=== PATIENT | female | born 1965 | race Native Hawaiian/Other Pacific Islander ===

== ENCOUNTER 2018-06-03 17:32 | Emergency (ER) | payer OTHER, SELFPAY ==
--- NOTE | 2018-06-03 17:35 | ED.LOWEXIN ---
HPI - Extremity Injury (Lower) <BRANDON Lemus - Last Filed: 06/03/18 22:16> General Chief Complaint: Extremity Injury, Lower Stated Complaint: fell, painful on lft knee and lizarraga Time Seen by Provider: 06/03/18 17:35 History of Present Illness HPI Narrative: A 52-year-old female here for complaint of left knee pain over the past week. She states that she slipped while getting out of a vehicle landing on her anterior knee. She reports that she has had pain into the anterior knee and also now to the posterior knee for the last several days. She denies any other injuries. She does report that she has also had swelling to bilateral lower extremities for the past 2 weeks. She states that she had some shortness of breath last night. She denies any chest pain. No fevers no chills. No cough. She is able ambulate. She reports increased pain with palpation to the left knee area. She does report that she has had several for plane flights over the past couple of weeks that she is visiting from [facility] and also went to [place] and to [place]. Related Data Previous Rx's Medication Instructions Recorded hydrocodone-acetaminophen [[place]] 1 tab PO Q6H PRN #10 tab 06/03/18 Allergies Allergy/AdvReac Type Severity Reaction Status Date / Time No Known Drug Allergies Allergy Verified 06/03/18 18:51 Review of Systems <BRANDON Lemus - Last Filed: 06/03/18 22:16> Constitutional Denies chills, Denies fever(s), Denies lethargy and Denies weakness Eyes Denies change in vision, Denies eye discharge, Denies irritation and Denies loss of vision ENT Ears, Nose, Mouth, and Throat: Denies change in voice, Denies neck pain and Denies sore throat Cardiovascular Denies chest pain, Denies irregular heart rhythm, Denies lightheadedness, Denies palpitations, Reports dyspnea and Denies orthopnea Respiratory Reports dyspnea Gastrointestinal Gastrointestinal: Denies abdominal pain, Denies change in bowel habits, Denies diarrhea, Denies nausea and Denies vomiting Genitourinary Denies hematuria, Denies flank pain, Denies urinary incontinence and Denies urinary urgency Musculoskeletal Denies neck pain Comments: Pain into left anterior and posterior knee. Bilateral lower edema to lower extremities Integumentary/Breasts Denies pruritus, Denies erythema, Denies rash and Denies wounds Neurologic Denies confusion, Denies loss of vision and Denies weakness Psychiatric Denies anxiety, Denies confusion, Denies depression, Denies homicidal ideation and Denies suicidal ideation Endocrine Denies palpitations Hematologic/Lymphatic Denies easy bruising Exam <BRANDON Lemus - Last Filed: 06/03/18 22:16> Initial Vital Signs Initial Vital Signs: Vital Signs Temperature 98.0 F 06/03/18 18:12 Pulse Rate 95 H 06/03/18 18:12 Respiratory Rate 16 06/03/18 18:12 Blood Pressure 133/62 H 06/03/18 18:12 Pulse Oximetry 99 06/03/18 18:12 Const General: cooperative and well developed Nutritional Appearance: well nourished Orientation: alert, awake, oriented x3 and not confused HENMT Mouth: oral mucosae normal and moist mucous membranes Eyes Conjunctivae: conjunctivae normal Sclera: sclerae normal Pupils: PERRL EOM: EOM intact bilaterally Resp Effort & Inspection: normal respiratory effort, able to speak in complete sentences, no respiratory distress and no use of accessory muscles Auscultation: clear to auscultation bilaterally, no rales, no rhonchi and no wheezes Cardio Rate: regular rate Rhythm: regular rhythm Heart Sounds: no click, no gallops, no murmurs and no rubs Pulses: normal peripheral pulses Skin General: no rashes or lesions noted, No jaundice and No petechiae Extrem Right lower extremity: edema Details: non-pitting and 2+ Left lower extremity: edema Details: non-pitting and 2+ Other: Left lower extremity with no erythema no increased temperature with palpation. Homans sign negative. No deformities to the left knee. Full range of motion distally. Full range of motion of left knee distal pulses intact distal sensation is intact. Negative anterior-posterior drawer sign <Gonzalo Wells DO - Last Filed: 06/03/18 22:30> Initial Vital Signs Initial Vital Signs: Vital Signs Temperature 98.0 F 06/03/18 18:12 Pulse Rate 95 H 06/03/18 18:12 Respiratory Rate 16 06/03/18 18:12 Blood Pressure 133/62 H 06/03/18 18:12 Pulse Oximetry 99 06/03/18 18:12 Course <BRANDON Lemus - Last Filed: 06/03/18 22:16> Orders Ordered: ED Orders 06/03/18 18:21 XR knee LT 3V Stat 06/03/18 18:22 XR chest 1V Stat EKG-12 Lead Stat 06/03/18 18:23 US periph venous low extrem lt Stat 06/03/18 18:56 B Type Natriuretic Peptide Stat Complete Blood Count AUTO DIFF Stat Comprehensive Metabolic Panel Stat Troponin & CK Cardiac Panel Stat Vital Signs - 8 hr 06/03/18 18:12 06/03/18 20:25 Temperature 98.0 F Pulse Rate 95 H 77 Respiratory Rate 16 15 Blood Pressure 133/62 H Blood Pressure [Right Arm] 119/74 Pulse Oximetry 99 100 <Gonzalo Wells DO - Last Filed: 06/03/18 22:30> Orders Ordered: ED Orders 06/03/18 18:21 XR knee LT 3V Stat 06/03/18 18:22 XR chest 1V Stat EKG-12 Lead Stat 06/03/18 18:23 US periph venous low extrem lt Stat 06/03/18 18:56 B Type Natriuretic Peptide Stat Complete Blood Count AUTO DIFF Stat Comprehensive Metabolic Panel Stat Troponin & CK Cardiac Panel Stat Vital Signs - 8 hr 06/03/18 18:12 06/03/18 20:25 Temperature 98.0 F Pulse Rate 95 H 77 Respiratory Rate 16 15 Blood Pressure 133/62 H Blood Pressure [Right Arm] 119/74 Pulse Oximetry 99 100 MDM - Extremity Injury (Lower) <BRANDON Lemus - Last Filed: 06/03/18 22:16> Lab Data Result diagrams: 06/03/18 18:56 06/03/18 18:56 Lab Results 06/03/18 06/03/18 06/03/18 Range/Units 18:56 18:56 18:56 WBC 6.2 (4.5-11.0) X10^3/uL RBC 4.37 (4.0-5.2) X10^6/uL Hgb 13.4 (12.0-16.0) g/dL Hct 39.9 (36-46) % MCV 91.2 (80-100) fL MCH 30.7 (26-34) PG MCHC 33.7 (30-36) % RDW 13.6 (11.6-14.8) % Plt Count 282 (150-400) X10^3/uL Neut % (Auto) 64.4 (50-75) % Lymph % (Auto) 23.9 L (25-40) % [place] % (Auto) 8.1 (3-14) % Eos % (Auto) 2.5 (2-4) % Baso % (Auto) 1.1 (0-2) % Neut # (Auto) 4000 (3726-0450) /uL Sodium 142 (137-145) mmol/L Potassium 4.7 (3.4-5.1) mmol/L Chloride 102 (98-107) mmol/L Carbon Dioxide 28 (22-32) mmol/L BUN 21 H (7-17) mg/dL Creatinine 0.70 (0.52-1.04) mg/dL Estimated GFR > 60.0 (>60) mL/min BUN/Creatinine Ratio 30.0 H (6-22) Glucose 143 H (70-100) mg/dL Calcium 9.7 (8.4-10.2) mg/dL Total Bilirubin 0.6 (0.2-1.3) mg/dL AST 31 (14-36) IU/L ALT 20 (9-52) IU/L Alkaline Phosphatase 40 (38-126) U/L Total Creatine Kinase 58 (30-135) U/L Troponin I < 0.012 (0.01-0.034) ng/mL B-Natriuretic Peptide (<100) Total Protein 7.9 (6.3-8.2) g/dL Albumin 4.5 (3.5-5.0) g/dL Globulin 3.4 (1.7-4.1) g/dL Albumin/Globulin Ratio 1.3 (1.0-2.8) Imaging Data Knee : Radiologist's impression: Patient: Ailyn Lewis MR#: [id number] : 1965 Acct:[id number] Age/Sex: 52 / F Date of Service: 06/03/18 Loc: ED Accession Number: [id number] Procedure: XR knee LT 3V Ordering Provider: Kameron Hall PROCEDURE: XR KNEE LT 3V INDICATIONS: Ground level fall with pain to anterior knee TECHNIQUE: 3 views of the knee were acquired. COMPARISON: None. FINDINGS: Bones: No displaced or depressed fractures or dislocations. The lateral tibial plateau is slightly indistinct in appearance. Soft tissues: There is a small joint effusion. No suspicious soft tissue calcifications. IMPRESSION: 1. No displaced or depressed fracture. 2. Slightly indistinct appearance of the lateral tibial plateau. If there is clinical suspicion for a nondepressed lateral tibial plateau fracture, further evaluation may be obtained with CT. 3. Small joint effusion. Chest x-ray: Radiologist's impression: Patient: Ailyn Lewis MR#: [id number] : 1965 Acct:[id number] Age/Sex: 52 / F Date of Service: 06/03/18 Loc: ED Accession Number: [id number] Procedure: XR chest 1V Ordering Provider: Kameron Hall PROCEDURE: XR CHEST 1V INDICATIONS: Shortness of breath last night swelling to bilateral lower e TECHNIQUE: One view of the chest was acquired. COMPARISON: None. FINDINGS: Surgical changes and devices: None. Lungs and pleura: No pleural effusions or pneumothorax. Lungs are clear. Mediastinum: Mediastinal contours appear normal. Heart size is normal. Bones and chest wall: No suspicious bony lesions. Overlying soft tissues appear unremarkable. IMPRESSION: 1. No acute cardiopulmonary disease. Dictated by: Heber Anderson M.D. on 06/03/2018 at 18:41 Approved by: Heber Anderson M.D. on 06/03/2018 at 18:42 ECG Data Interpretation: EKG shows normal sinus rhythm with no ST elevation or depression. No ectopy. Ventricular rate of 87. Pr interval of 174. QRS duration 96. QT of 367. MDM Narrative Medical decision making narrative: EKG shows normal sinus rhythm with no ST elevation or depression no ectopy. CBC and Chem panel were obtained were unremarkable. Cardiac enzymes were negative. BNP was unremarkable. Chest x-ray was obtained was negative for any acute findings. Ultrasound of the left lower extremity was obtained and was negative for DVT. X-ray of the left knee was obtained was negative for any acute findings. Signs and symptoms presents as contusion/sprain of the left knee. she is placed in knee immobilizer and crutches for non weight-bearing and support. Follow up with primary care provider next week for re-evaluation. If continue symptoms recommend MRI of the left knee. Elevate lower extremities to help with swelling. [id number] Tylenol Motrin as needed for any discomfort. Small amount of [place] is prescribed for breakthrough pain. For any worsening symptoms return to emergency room. <Gonzalo Wells DO - Last Filed: 06/03/18 22:30> Lab Data Lab Results 06/03/18 06/03/18 06/03/18 Range/Units 18:56 18:56 18:56 WBC 6.2 (4.5-11.0) X10^3/uL RBC 4.37 (4.0-5.2) X10^6/uL Hgb 13.4 (12.0-16.0) g/dL Hct 39.9 (36-46) % MCV 91.2 (80-100) fL MCH 30.7 (26-34) PG MCHC 33.7 (30-36) % RDW 13.6 (11.6-14.8) % Plt Count 282 (150-400) X10^3/uL Neut % (Auto) 64.4 (50-75) % Lymph % (Auto) 23.9 L (25-40) % [place] % (Auto) 8.1 (3-14) % Eos % (Auto) 2.5 (2-4) % Baso % (Auto) 1.1 (0-2) % Neut # (Auto) 4000 (5034-7433) /uL Sodium 142 (137-145) mmol/L Potassium 4.7 (3.4-5.1) mmol/L Chloride 102 (98-107) mmol/L Carbon Dioxide 28 (22-32) mmol/L BUN 21 H (7-17) mg/dL Creatinine 0.70 (0.52-1.04) mg/dL Estimated GFR > 60.0 (>60) mL/min BUN/Creatinine Ratio 30.0 H (6-22) Glucose 143 H (70-100) mg/dL Calcium 9.7 (8.4-10.2) mg/dL Total Bilirubin 0.6 (0.2-1.3) mg/dL AST 31 (14-36) IU/L ALT 20 (9-52) IU/L Alkaline Phosphatase 40 (38-126) U/L Total Creatine Kinase 58 (30-135) U/L Troponin I < 0.012 (0.01-0.034) ng/mL B-Natriuretic Peptide (<100) Total Protein 7.9 (6.3-8.2) g/dL Albumin 4.5 (3.5-5.0) g/dL Globulin 3.4 (1.7-4.1) g/dL Albumin/Globulin Ratio 1.3 (1.0-2.8) Discharge Plan Departure Patient Disposition: Home, Self-Care Clinical Impression: Left knee sprain Discharge Date/Time: 06/03/18 20:50 Interventions: ED Discharge Assessment Last Done: 06/03/18 20:49 Instructions: DI for Knee Pain Activity Restrictions/Additional Instructions: Laboratory results and imaging were unremarkable today. Signs and symptoms presents as contusion/sprain of the left knee. she is placed in knee immobilizer and crutches for non weight-bearing and support. Follow up with primary care provider next week for re-evaluation. If continue symptoms recommend MRI of the left knee. Elevate lower extremities to help with swelling. [id number] Tylenol Motrin as needed for any discomfort. Small amount of [place] is prescribed for breakthrough pain. For any worsening symptoms return to emergency room. Prescriptions: New hydrocodone-acetaminophen [[place]] 5-325 mg tablet 1 tab PO Q6H PRN (Reason: pain) Qty: 10 RF: 0 Referrals: [facility] [Provider Group] <Gonzalo Wells DO - Last Filed: 06/03/18 22:30> Cosmandeep ED Attending Hillary Attestation: I was immediately available in the department for consultation. Documentation has been reviewed. I agree with assessment and plan.
[2018-06-03 18:12] VITALS: BP 133/62; PULSE 95; RESP 16; TEMP 36.7; O2SAT 99; BMI 30.9
--- NOTE | 2018-06-03 18:21 | DI.RAD.S_ITS ---
PROCEDURE: XR KNEE LT 3V INDICATIONS: Ground level fall with pain to anterior knee TECHNIQUE: 3 views of the knee were acquired. COMPARISON: None. FINDINGS: Bones: No displaced or depressed fractures or dislocations. The lateral tibial plateau is slightly indistinct in appearance. Soft tissues: There is a small joint effusion. No suspicious soft tissue calcifications. IMPRESSION: 1. No displaced or depressed fracture. 2. Slightly indistinct appearance of the lateral tibial plateau. If there is clinical suspicion for a nondepressed lateral tibial plateau fracture, further evaluation may be obtained with CT. 3. Small joint effusion. Dictated by: Heber Anderson M.D. on 06/03/2018 at 18:42 Approved by: Heber Anderson M.D. on 06/03/2018 at 18:44
--- NOTE | 2018-06-03 18:22 | DI.RAD.S_ITS ---
PROCEDURE: XR CHEST 1V INDICATIONS: Shortness of breath last night swelling to bilateral lower e TECHNIQUE: One view of the chest was acquired. COMPARISON: None. FINDINGS: Surgical changes and devices: None. Lungs and pleura: No pleural effusions or pneumothorax. Lungs are clear. Mediastinum: Mediastinal contours appear normal. Heart size is normal. Bones and chest wall: No suspicious bony lesions. Overlying soft tissues appear unremarkable. IMPRESSION: 1. No acute cardiopulmonary disease. Dictated by: Heber Anderson M.D. on 06/03/2018 at 18:41 Approved by: Heber Anderson M.D. on 06/03/2018 at 18:42
--- NOTE | 2018-06-03 18:23 | DI.US.S_ITS ---
PROCEDURE: US PERIPH VENOUS LOW EXTREM LT INDICATIONS: Pain into posterior knee and also swelling of lower leg. TECHNIQUE: Real-time imaging, as well as color and pulse Doppler interrogation, were performed of the lower extremity deep veins from the inguinal ligament to the popliteal fossa. COMPARISON: None. FINDINGS: The deep veins are normally compressible, and free of intraluminal thrombus. Color and pulse Doppler demonstrate normal phasic intraluminal flow. There is normal augmentation response to distal compression maneuver. IMPRESSION: 1. No evidence of deep venous thrombosis in the left lower extremity. Dictated by: Heber Anderson M.D. on 06/03/2018 at 20:36 Approved by: Heber Anderson M.D. on 06/03/2018 at 20:36
[2018-06-03 19:08] LABS: Add Manual Diff / Slide Review NO; Basophils Percent Auto 1.1 % (0-2); Eosinophils Percent Auto 2.5 % (2-4); Hematocrit 39.9 % (36-46); Hemoglobin 13.4 g/dL (12.0-16.0); Lymphocytes Percent Auto 23.9 % (25-40); Mean Corpuscular HGB Conc 33.7 % (30-36); Mean Corpuscular Hemoglobin 30.7 PG (26-34); Mean Corpuscular Volume 91.2 fL (80-100); Monocytes Percent Auto 8.1 % (3-14); Neutrophils Absolute Auto 4000 /uL (3000-5900); Neutrophils Percent Auto 64.4 % (50-75); Platelet Count 282 X10^3/uL (150-400); Red Blood Cell Count 4.37 X10^6/uL (4.0-5.2); Red Cell Distribution Width 13.6 % (11.6-14.8); White Blood Cell Count 6.2 X10^3/uL (4.5-11.0)
[2018-06-03 19:17] LABS: Alanine Aminotransferase 20 IU/L (9-52); Albumin 4.5 g/dL (3.5-5.0); Albumin Globulin Ratio 1.3 (1.0-2.8); Alkaline Phosphatase 40 U/L (38-126); Aspartate Aminotransferase 31 IU/L (14-36); Bilirubin Total 0.6 mg/dL (0.2-1.3); Blood Urea Nitrogen 21 mg/dL (7-17); Calcium 9.7 mg/dL (8.4-10.2); Carbon Dioxide 28 mmol/L (22-32); Chloride 102 mmol/L (98-107); Creatine Kinase 58 U/L (30-135); Estimated Glomerular Filt Rate > 60.0 mL/min (>60); Globulin 3.4 g/dL (1.7-4.1); Glucose 143 mg/dL (70-100); Potassium 4.7 mmol/L (3.4-5.1); Sodium 142 mmol/L (137-145); Total Protein 7.9 g/dL (6.3-8.2)
[2018-06-03 19:26] LABS: HEMOLYSIS 83 (0-50)
[2018-06-03 19:34] LABS: Troponin I < 0.012 ng/mL (0.01-0.034)
[2018-06-03 20:25] VITALS: BP 119/74; PULSE 77; RESP 15; O2SAT 100
== END 2018-06-03 20:50 | disposition home or self-care (01) ==
PROVIDERS: Emergency Provider Nurse Practitioner Family
DX: S83.92XA Sprain of unspecified site of left knee, initial encounter (principal); R06.02 Shortness of breath; W01.0XXA Fall on same level from slipping, tripping and stumbling without subsequent striking against object, initial encounter
CPT/HCPCS: 36591; 71045; 73562; 80053; 82550; 82553; 83880; 84484; 85025; 93005; 93971; 99283; 99285

== ENCOUNTER 2025-05-17 12:22 | Emergency (ER) | payer OTHER, SELFPAY ==
[2025-05-17] VITALS (11 sets, daily range): BP systolic 110–132; BP diastolic 53–61; PULSE 75–84; RESP 14–22; TEMP 36.9; O2SAT 97–100; BMI 24.0
--- NOTE | 2025-05-17 12:24 | DI.RAD.S_ITS ---
PROCEDURE: XR CHEST 1V INDICATIONS: Chest Pain TECHNIQUE: One view of the chest was acquired. COMPARISON: [facility], CR, XR CHEST 1V, 06/03/2018, 18:10. FINDINGS: Surgical changes and devices: None. Lungs and pleura: Lungs are clear. No pleural effusions or pneumothorax. Mediastinum: Mediastinal contours appear normal. Heart size is normal. Bones and chest wall: No suspicious bony lesions. Overlying soft tissues appear unremarkable. IMPRESSION: No acute cardiopulmonary abnormality is seen. Dictated by: Genet Waller M.D. on 05/17/2025 at 12:57 Approved by: Genet Waller M.D. on 05/17/2025 at 12:57
[2025-05-17] MEDS: ASPIRIN 81 MG CHEW TAB 324 MG PO (12:31)
--- NOTE | 2025-05-17 12:34 | EKG_ITS ---
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
--- NOTE | 2025-05-17 12:37 | ED.CHESTPAIN ---
HPI - Chest Pain General Chief Complaint: Chest Pain Stated Complaint: Chest Pain; is diabetic - poss heart attack Time Seen by Provider: 05/17/25 12:28 Source: patient Mode of arrival: Ambulatory Limitations: no limitations History of Present Illness HPI narrative: 59-year-old female type 1 diabetic, dyslipidemia, cholecystectomy presents with right-sided chest pain that radiates to the back of the scapula constant pain is 8/10 sharp and tight to 1 beer aspirin with no significant relief of her symptoms prior to arrival here in the ER. Patient denies nausea vomiting diaphoresis constipation or any history of CAD. Patient has poorly controlled diabetes her last A1c is 13 from 15 and she is now on insulin where as she was on oral medications previously and was a type 2 but diabetic prior. Patient is visiting from [facility] and had chest pain 2 months prior to [facility] visits whereby she was seen in the ER and also seen by [employer] with no acute intervention required. Other than what is stated 14 point review of system is negative Related Data Previous Rx's ?Medication ?Instructions ?Recorded hydrocodone 5 mg-acetaminophen 325 1 tab PO Q6H PRN pain #10 tabs 07/07/18 mg tablet ([place]) Allergies Allergy/AdvReac Type Severity Reaction Status Date / Time No Known Drug Allergies Allergy Verified 05/17/25 12:28 Review of Systems Review of Systems ROS Unobtainable: All systems reviewed & are unremarkable except as noted in HPI and below Patient History Medical History (Updated 05/17/25 @ 15:58 by Carlyle Madrigal, ) Hypertension Social History Smoking Status: Unknown if ever smoked Smoking Status: Unknown if ever smoked Exam Narrative Exam Narrative: GENERAL: [59] year old patient appears stated age. Well-developed patient, in mild distress. HEAD: Atraumatic. Normocephalic. EYES: Pupils equal round and reactive. Extraocular motions intact. No scleral icterus. No injection or drainage. ENT: Nose without bleeding, purulent drainage. Throat without erythema, tonsillar hypertrophy or exudate. Airway patent. NECK: Trachea midline. Non tender CARDIOVASCULAR: Regular rate and rhythm without murmurs, gallops, or rubs. RESPIRATORY: Clear to auscultation. Breath sounds equal bilaterally. No wheezes, rales, or rhonchi. GASTROINTESTINAL: Abdomen soft, non-tender, nondistended. EXTREMITIES: No edema or joint tenderness. BACK: Nontender without deformity or crepitance. No flank tenderness. NEURO: AOx3. SKIN: No rash or erythema of visible areas Initial Vital Signs Initial Vital Signs: Vital Signs Pulse Rate 80 05/17/25 12:27 Blood Pressure 132/61 05/17/25 12:27 Pulse Oximetry 100 05/17/25 12:27 Scores HEART Score Heart Score history: Slightly Suspicious Heart Score EKG: Normal Heart Score Age: 45-64 years old Heart Score risk factors: No known risk factors Heart Score troponin: < or = to normal limit Heart Score Total: 1 Course Orders Ordered: ED Orders 05/17/25 12:24 XR chest 1V Stat EKG-12 Lead Stat 05/17/25 12:30 Complete Blood Count AUTO DIFF Stat Comprehensive Metabolic Panel Stat Lipase Stat Magnesium Stat NT-proBNP (BNP-Adult 18+) Stat PTT Partial Thromboplastin [place] Stat Prothrombin Time INR Stat Troponin & CK Cardiac Panel Stat 05/17/25 13:14 EKG-12 Lead Stat 05/17/25 14:38 Troponin I Stat Discontinued Medications Aspirin (Aspirin 81 Mg Chew Tab) 324 mg PO NOW ONE Stop: 05/17/25 12:25 Last Admin: 05/17/25 12:31 Dose: 243 mg Documented By: ANA Vital Signs Vital signs: Vital Signs - 8 hr 05/17/25 12:27 05/17/25 12:27 05/17/25 12:28 Temperature 98.5 F Pulse Rate 80 79 Respiratory Rate 14 Blood Pressure 132/61 132/61 Pulse Oximetry 100 100 Oxygen Delivery Method Room Air 05/17/25 12:30 05/17/25 12:38 05/17/25 12:38 Temperature Pulse Rate 81 79 Respiratory Rate Blood Pressure 129/59 L Pulse Oximetry 100 99 Oxygen Delivery Method 05/17/25 13:00 05/17/25 13:00 05/17/25 13:29 Temperature Pulse Rate 75 Respiratory Rate 19 Blood Pressure 116/58 L 110/53 L Pulse Oximetry 98 Oxygen Delivery Method 05/17/25 13:29 05/17/25 13:30 05/17/25 13:30 Temperature Pulse Rate 77 77 Respiratory Rate 22 22 Blood Pressure 110/53 L Pulse Oximetry 100 100 Oxygen Delivery Method 05/17/25 14:00 05/17/25 14:00 05/17/25 14:30 Temperature Pulse Rate 76 78 Respiratory Rate 19 19 Blood Pressure 111/56 L Pulse Oximetry 98 97 Oxygen Delivery Method 05/17/25 14:30 05/17/25 15:00 05/17/25 15:00 Temperature Pulse Rate 75 Respiratory Rate 19 Blood Pressure 118/58 L 132/60 Pulse Oximetry 98 Oxygen Delivery Method MDM - Chest Pain Lab Data 05/17/25 12:30 05/17/25 12:30 Labs: Lab Results 05/17/25 05/17/25 Range/Units 12:30 14:38 WBC 3.8 L (4.5-11.0) X10^3/uL RBC 3.96 L (4.0-5.2) X10^6/uL Hgb 12.5 (12.0-16.0) g/dL Hct 37.5 (36-46) % MCV 94.7 (80-100) fL MCH 31.5 (26-34) PG MCHC 33.3 (30-36) % RDW 13.8 (11.6-14.8) % Plt Count 211 (150-400) X10^3/uL Neut % (Auto) 49.6 L (50-75) % Lymph % (Auto) 34.7 (25-40) % [place] % (Auto) 12.7 (3-14) % Eos % (Auto) 1.7 L (2-4) % Baso % (Auto) 1.3 (0-2) % Neut # (Auto) 1900 (7654-1110) /uL Lymph # (Auto) 1300 (6909-1458) /uL [place] # (Auto) 500 (0-900) /uL Eos # (Auto) 100 (0-450) /uL Baso # (Auto) 0 (0-100) /uL PT 9.9 (9.4-12.5) SECONDS INR 0.9 (0.9-1.3) APTT 34 (25.1-36.5) SECONDS Sodium 134 L (137-145) mmol/L Potassium 4.5 (3.4-5.1) mmol/L Chloride 102 (98-107) mmol/L Carbon Dioxide 29 (22-32) mmol/L BUN 18 H (7-17) mg/dL Creatinine 0.63 (0.52-1.04) mg/dL Estimated GFR > 60 (>60) mL/min BUN/Creatinine Ratio 28.6 H (6-22) Glucose 273 H (70-99) mg/dL Calcium 9.1 (8.4-10.2) mg/dL Magnesium 1.8 (1.6-2.3) mg/dL Total Bilirubin 0.7 (0.2-1.3) mg/dL AST 41 H (14-36) IU/L ALT 21 (<35) IU/L Alkaline Phosphatase 42 (38-126) U/L Total Creatine Kinase 51 (30-135) U/L Troponin I < 0.012 < 0.012 (0.01-0.034) ng/mL NT-Pro-B Natriuret Pep 101 (<125) pg/mL Total Protein 6.2 L (6.3-8.2) g/dL Albumin 3.8 (3.5-5.0) g/dL Globulin 2.4 (1.7-4.1) g/dL Albumin/Globulin Ratio 1.6 (1.0-2.8) Lipase 136 (23-300) U/L Urine Dip Bedside Urine Glucose 500 mg/dl Bedside Urine Bilirubin - Negative Bedside Urine Ketone - Negative Urine Specific [place] 1.015 Bedside Urine Occult Blood - Negative Bedside Urine pH 6.0 Bedside Urine Protein - Negative Bedside Urine Urobilinogen - Negative Bedside Urine Nitrite - Negative Bedside Urine Leukocytes - Negative Esterase ECG Data Interpretation: NSR HR 84 KS 166 QRS [address]-t wave change NO previous EKG to compare against MDM Narrative Medical decision making narrative: All lab work, vital signs, nurse triage note, medication list, previous ER visit, and all imaging studies reviewed. Heart score 1. Two sets troponins 2 EKGs all normal chest x-ray did not show any acute process. Patient is chest pain-free. Patient given aspirin here. Differential diagnosis includes STEMI unstable angina non-STEMI GERD anxiety. Patient will return with new or worsening symptoms. Discharge Plan Departure Patient Disposition: Home Clinical Impression: Chest pain Instructions: DI for Chest Pain Activity Restrictions/Additional Instructions: Return with new or worsening symptoms. Prescriptions: No Action hydrocodone-acetaminophen [[place]] 5-325 mg tablet 1 tab PO Q6H PRN (Reason: pain) Qty: 10 0RF Referrals: *[facility]* [Primary Care Provider, Emergency Medicine] Stand Alone Forms: Patient Portal/API
[2025-05-17 12:46] LABS: Add Manual Diff / Slide Review NO; Basophils Absolute Auto 0 /uL (0-100); Basophils Percent Auto 1.3 % (0-2); Eosinophils Absolute Auto 100 /uL (0-450); Eosinophils Percent Auto 1.7 % (2-4); Hematocrit 37.5 % (36-46); Hemoglobin 12.5 g/dL (12.0-16.0); Lymphocytes Absolute Auto 1300 /uL (1100-4500); Lymphocytes Percent Auto 34.7 % (25-40); Mean Corpuscular HGB Conc 33.3 % (30-36); Mean Corpuscular Hemoglobin 31.5 PG (26-34); Mean Corpuscular Volume 94.7 fL (80-100); Monocytes Absolute Auto 500 /uL (0-900); Monocytes Percent Auto 12.7 % (3-14); Neutrophils Absolute Auto 1900 /uL (1500-7000); Neutrophils Percent Auto 49.6 % (50-75); Platelet Count 211 X10^3/uL (150-400); Red Blood Cell Count 3.96 X10^6/uL (4.0-5.2); Red Cell Distribution Width 13.8 % (11.6-14.8); White Blood Cell Count 3.8 X10^3/uL (4.5-11.0)
[2025-05-17 12:56] LABS: INR 0.9 (0.9-1.3); Prothrombin Time 9.9 SECONDS (9.4-12.5)
[2025-05-17 12:58] LABS: PTT Partial Thromboplastin Tim 34 SECONDS (25.1-36.5)
[2025-05-17 13:00] LABS: Alanine Aminotransferase 21 IU/L (<35); Albumin 3.8 g/dL (3.5-5.0); Albumin Globulin Ratio 1.6 (1.0-2.8); Alkaline Phosphatase 42 U/L (38-126); Aspartate Aminotransferase 41 IU/L (14-36); BUN Creatinine Ratio 28.6 (6-22); Bilirubin Total 0.7 mg/dL (0.2-1.3); Blood Urea Nitrogen 18 mg/dL (7-17); Calcium 9.1 mg/dL (8.4-10.2); Carbon Dioxide 29 mmol/L (22-32); Chloride 102 mmol/L (98-107); Creatine Kinase 51 U/L (30-135); Estimated Glomerular Filt Rate > 60 mL/min (>60); Globulin 2.4 g/dL (1.7-4.1); Glucose 273 mg/dL (70-99); HEMOLYSIS 33 (0-50); Lipase 136 U/L (23-300); Magnesium 1.8 mg/dL (1.6-2.3); Potassium 4.5 mmol/L (3.4-5.1); Sodium 134 mmol/L (137-145); Total Protein 6.2 g/dL (6.3-8.2)
[2025-05-17 13:12] LABS: NT-proBNP (BNP-Adult 18+) 101 pg/mL (<125); Troponin I < 0.012 ng/mL (0.01-0.034)
--- NOTE | 2025-05-17 13:14 | EKG_ITS ---
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
[2025-05-17 15:37] LABS: Troponin I < 0.012 ng/mL (0.01-0.034)
== END 2025-05-17 16:10 | disposition home or self-care (01) ==
PROVIDERS: Emergency Provider Family Medicine
DX: R07.9 Chest pain, unspecified (principal); E10.9 Type 1 diabetes mellitus without complications
CPT/HCPCS: 36415; 71045; 80053; 81003; 82550; 83690; 83735; 83880; 84484; 85025; 85610; 85730; 93005; 93010; 99284